=== PATIENT | female | born 1945 | race African-American/Black ===

== ENCOUNTER 2019-03-28 08:05 | Emergency (ER) | payer OTHER ==
[~2019-03-28] VITALS: Ht 167.6 cm; Wt 95.3 kg
[2019-03-28 08:29] VITALS: BP 132/63
[2019-03-28] MEDS ORDERED: KETOROLAC TROMETH 30 MG/ML 1ML VIAL IM ONE (08:45)
== END 2019-03-28 09:33 | disposition home or self-care (01) ==
LOC: ER 08:05
DX: S16.1XXA Strain of muscle, fascia and tendon at neck level, initial encounter (principal); M54.42 Lumbago with sciatica, left side; M19.90 Unspecified osteoarthritis, unspecified site; I10 Essential (primary) hypertension; X50.1XXA Overexertion from prolonged static or awkward postures, initial encounter; Y93.89 Activity, other specified; Y99.8 Other external cause status; Y92.89 Other specified places as the place of occurrence of the external cause
CPT/HCPCS: 72040; 96372; 99283; J1885

== ENCOUNTER 2019-04-09 11:24 | Emergency (ER) | payer OTHER ==
[~2019-04-09] VITALS: Ht 167.6 cm; Wt 92.1 kg
[2019-04-09 11:42] VITALS: BP 127/89
== END 2019-04-09 13:56 | disposition home or self-care (01) ==
LOC: ER 11:24
DX: B02.9 Zoster without complications (principal); M19.90 Unspecified osteoarthritis, unspecified site; I10 Essential (primary) hypertension; Z98.51 Tubal ligation status